=== PATIENT | female | born 1985 | race Caucasian/White ===

== ENCOUNTER → 2017-04-22 | Outpatient (CLI) | payer OTHER ==
[~2017-04-22] MED LIST: METFORMIN PO; PREN1TAB60 PO
== END ==
LOC: STAR 09:17
PROVIDERS: ATTEND Obstetrics & Gynecology
DX: Z02.9 Encounter for administrative examinations, unspecified (principal)

== ENCOUNTER 2017-04-27 08:27 | Observation (INO) | payer OTHER ==
[~2017-04-27] VITALS: Ht 165.1 cm; Wt 97.4 kg
[2017-04-27 09:05] VITALS: BP 119/73
[2017-04-27] MEDS ORDERED: BUPIVACAINE/PF 0.25% ONE (09:25)
[2017-04-27] MEDS ORDERED: EPINEPHRINE 1 MG/ML, 1ML ONE (09:25)
[2017-04-27] MEDS ORDERED: INTERCEED 3 X 4 INCH DRESSING ONE (09:25)
[2017-04-27 10:05] LABS: HCG UR SG 1.018 (1.003-1.030)
[2017-04-27] MEDS ORDERED: FENTANYL PF 100 MCG/2ML ONE ×2 (10:11→11:15)
[2017-04-27] MEDS ORDERED: MIDAZOLAM 1 MG/ML, 2ML ONE (10:11)
[2017-04-27] MEDS ORDERED: KETAMINE 10 MG/ML, 20ML ONE (10:14)
[2017-04-27] MEDS ORDERED: CEFAZOLIN 1,000 MG ONE (10:17)
[2017-04-27] MEDS ORDERED: GLYCOPYRROLATE 0.2MG/1ML, 5ML ONE (10:17)
[2017-04-27] MEDS ORDERED: KETOROLAC 30 MG/1 ML ONE (10:17)
[2017-04-27] MEDS ORDERED: NEOSTIGMINE 1 MG/ML, 10ML ONE (10:17)
[2017-04-27] MEDS ORDERED: DEXAMETHASONE 4 MG/ML, 1ML ONE (10:17)
[2017-04-27] MEDS ORDERED: ONDANSETRON 2MG/ML, 2ML ONE (10:17)
[2017-04-27] MEDS ORDERED: LIDOCAINE 2% 100MG/5ML SYRINGE ONE (10:17)
[2017-04-27] MEDS ORDERED: PROPOFOL 10 MG/ML, 20ML ONE (10:17)
[2017-04-27] MEDS ORDERED: ACETAMINOPHEN 325 MG TABLET PO PRN (11:00)
[2017-04-27] MEDS ORDERED: FENTANYL PF 100 MCG/2ML IV PRN (11:00)
[2017-04-27] MEDS ORDERED: PROMETHAZINE 25 MG/ML, 1ML IV PRN (11:00)
[2017-04-27] MEDS ORDERED: MEPERIDINE/PF 25MG/0.5ML IVPush PRN (11:00)
[2017-04-27] MEDS ORDERED: HYDROmorphone 1 MG/ML, 1ML IV PRN (11:00)
[2017-04-27] MEDS ORDERED: OXYcodone 5 MG/5 ML ORAL.SOL UDC PO PRN (11:00)
[2017-04-27] MEDS ORDERED: OXYcodone 5 MG/5 ML ORAL.SOL UDC ONE (12:03)
[2017-04-27 12:35] VITALS: BP 103/70
[2017-04-27] MEDS ORDERED: morphine SULFATE 10 MG/ML, 1ML IV PRN (13:30)
[2017-04-27] MEDS ORDERED: LACTATED RINGERS 500 ML IVBOLUS ONE (13:30)
[2017-04-27] MEDS ORDERED: IBUPROFEN 600 MG TABLET PO PRN (13:30)
[2017-04-27] MEDS ORDERED: OXYcodone/APAP 5/325MG TABLET PO PRN (13:30)
[2017-04-27] MEDS ORDERED: LACTATED RINGERS 1,000 ML IV SCH (13:30)
[2017-04-27] MEDS ORDERED: OXYC-302 PO (13:34)
[2017-04-27] MEDS ORDERED: IBUP-1223 PO (13:36)
[2017-04-27] MEDS ORDERED: ONDANSETRON ODT 4 MG ONE (16:49)
[2017-04-27] MEDS ORDERED: ONDANSETRON 4 MG TABLET PO PRN (17:00)
== END 2017-04-27 18:20 | disposition home or self-care (01) ==
LOC: OR 08:27 → 4NOR 08:44 → OUT 13:24
PROVIDERS: ADMIT Obstetrics & Gynecology; ATTEND Obstetrics & Gynecology
DX: E28.2 Polycystic ovarian syndrome (principal)
CPT/HCPCS: 49320; 58350; 81025; G0378; J0690; J1100; J1885; J2250; J2405; J2704; J2710; J3010; Q0162; J0171; J3490

== ENCOUNTER 2018-08-10 11:58 | Inpatient (IN) | payer OTHER ==
[~2018-08-10] VITALS: Ht 162.6 cm; Wt 85.5 kg
[~2018-08-10 11:58] MED LIST changes: +IBUP-1223 PO; +OXYC-302 PO
[2018-08-10 12:13] VITALS: BP 102/60
[2018-08-10] MEDS ORDERED: LEVO175T5 PO (12:39)
[2018-08-10] MEDS ORDERED: OMEP20TA62 PO (12:39)
[2018-08-10] MEDS ORDERED: OXYTOCIN 30U/ 0.9% NaCL 500ML 500 ML IV ONE (14:14)
[2018-08-10] MEDS ORDERED: D5%-LACTATED RINGERS 1,000 ML IV SCH (14:14)
[2018-08-10] MEDS ORDERED: TERBUTALINE 1 MG/ML, 1ML IVPush PRN (14:30)
[2018-08-10] MEDS ORDERED: CALCIUM CARBONATE 500 MG TAB.CHEW PO PRN (14:30)
[2018-08-10] MEDS ORDERED: FENTANYL PF 100 MCG/2ML IV PRN (14:30)
[2018-08-10 14:35] LABS: BASOPHILS # (AUTO) 0.06 x10^3/uL (0-0.1); BASOPHILS % (AUTO) 1 % (0-1); EOSINOPHILS # (AUTO) 0.32 x10^3/uL (0-0.4); EOSINOPHILS % (AUTO) 3 % (1-7); LYMPHOCYTES # (AUTO) 2.98 x10^3/uL (1-3.4); LYMPHOCYTES % (AUTO) 28 % (22-44); MD NO; MEAN CORPUSCULAR HEMOGLOBIN 29.4 pg (27.0-34.8); MEAN CORPUSCULAR HGB CONC 32.7 g/dL (32.4-35.8); MEAN CORPUSCULAR VOLUME 89.9 fL (80-100); MEAN PLATELET VOLUME 8.5 fL (7.4-10.4); MONOCYTES # (AUTO) 0.34 x10^3/uL (0.2-0.8); MONOCYTES % (AUTO) 3 % (2-9); NEUTROPHILS # (AUTO) 6.93 x10^3/uL (1.8-6.8); NEUTROPHILS % (AUTO) 65 % (42-75); PLATELET COUNT 270 x10^3/uL (130-400); RED BLOOD COUNT 4.41 x10^6/uL (3.82-5.3); RED CELL DISTRIBUTION WIDTH 13.6 % (9.6-15.2)
[2018-08-10] MEDS: LACTATED RINGERS 1,000 ML IV SCH (14:51)
[2018-08-10] MEDS ORDERED: NEWBORN KIT ONE (14:55)
[2018-08-10] MEDS ORDERED: OXYTOCIN 30U/ 0.9% NaCL 500ML 500 ML ONE (18:34)
[2018-08-10] MEDS ORDERED: OXYTOCIN 30U/ 0.9% NaCL 500ML 500 ML IV PRN (18:41)
[2018-08-10 19:41] VITALS: BP 116/61
[2018-08-10] MEDS ORDERED: FENTANYL/BUPIV./NS/PF 250 ML EPIDCONT SCH (20:01)
[2018-08-10] MEDS ORDERED: FENTANYL PF 500 MCG, BUPIVACAINE/PF 0.5%, 30ML 62.5 ML in SODIUM CHLORIDE 0.9% 177.5 ML EPIDCONT SCH (20:18)
[2018-08-11] MEDS ORDERED: LIDOCAINE 1%, 20ML ONE (00:32)
[2018-08-11] MEDS ORDERED: MISOPROSTOL 200 MCG TABLET ONE (00:33)
[2018-08-11] MEDS ORDERED: FENTANYL PF 100 MCG/2ML ONE ×2 (00:37→03:21)
[2018-08-11] MEDS: FENTANYL PF 100 MCG/2ML IVPush PRN ×2 (00:44→03:24)
[2018-08-11] MEDS ORDERED: ONDANSETRON 2MG/ML, 2ML ONE ×2 (03:12→19:01)
[2018-08-11] MEDS: ONDANSETRON 2MG/ML, 2ML IVPush PRN ×2 (03:15→19:06)
[2018-08-11] MEDS ORDERED: LACTATED RINGERS 1,000 ML IV SCH (04:37)
[2018-08-11] MEDS ORDERED: FENTANYL/BUPIV./NS/PF 250 ML EPIDCONT SCH (04:37)
[2018-08-11] MEDS ORDERED: BUPIVACAINE 0.25% ONE (04:39)
[2018-08-11] MEDS ORDERED: NALOXONE 0.4 MG/ML, 1ML IVPush PRN (05:00)
[2018-08-11] MEDS ORDERED: LACTATED RINGERS 1,000 ML IVBOLUS PRN (05:00)
[2018-08-11] MEDS: EPHEDRINE 50 MG/ML, 1ML IVPush PRN ×2 (05:25→06:54)
[2018-08-11] MEDS: LACTATED RINGERS 1,000 ML IV SCH (05:39)
[2018-08-11] MEDS ORDERED: CEFAZOLIN PMX 1GM/50ML 0 ML ONE (14:34)
[2018-08-11] MEDS: CEFAZOLIN PMX 1GM/50ML 50 ML IV SCH ×2 (14:40→20:31)
[2018-08-11] MEDS ORDERED: OXYTOCIN 30U/ 0.9% NaCL 500ML 500 ML ONE (18:59)
[2018-08-11 19:26] VITALS: BP 95/52
[2018-08-11] MEDS ORDERED: METOCLOPRAMIDE 5 MG/ML, 2ML ONE (19:37)
[2018-08-11] MEDS ORDERED: SODIUM CITRATE/CITRIC ACID 15 ML UDC ONE (19:37)
[2018-08-11] MEDS ORDERED: CEFAZOLIN PMX 1GM/50ML 50 ML ONE (20:28)
[2018-08-12] MEDS ORDERED: METOCLOPRAMIDE 5 MG/ML, 2ML ONE (05:10)
[2018-08-12] MEDS ORDERED: FENTANYL PF 100 MCG/2ML ONE (06:04)
[2018-08-12] MEDS ORDERED: METOCLOPRAMIDE 5 MG/ML, 2ML IVPush PRN (06:30)
[2018-08-12] MEDS ORDERED: SODIUM CITRATE/CITRIC ACID 15 ML UDC PO PRN (06:30)
[2018-08-12] MEDS ORDERED: CEFAZOLIN 1,000 MG ONE (06:54)
[2018-08-12] MEDS ORDERED: EPHEDRINE 50 MG/ML, 1ML ONE (06:54)
[2018-08-12] MEDS ORDERED: WATER-INJECTION,STERILE 10 ML IV ONE (06:54)
[2018-08-12] MEDS ORDERED: ONDANSETRON 2MG/ML, 2ML ONE (06:54)
[2018-08-12] MEDS ORDERED: PHENYLEPHRINE 10 MG/ML ONE (06:54)
[2018-08-12] MEDS ORDERED: PROPOFOL 10 MG/ML, 20ML ONE ×2 (06:54)
[2018-08-12] MEDS ORDERED: OXYTOCIN 10 UNITS/ML, 1ML ONE ×2 (06:54→07:09)
[2018-08-12] MEDS ORDERED: morphine SULFATE/PF 0.5 MG/ML, 10ML ONE (06:57)
[2018-08-12] MEDS ORDERED: MIDAZOLAM 1 MG/ML, 2ML ONE ×2 (07:07→07:12)
[2018-08-12] MEDS ORDERED: BUPIVACAINE 0.25% ONE (07:10)
[2018-08-12] MEDS ORDERED: KETOROLAC 30 MG/1 ML ONE (07:18)
[2018-08-12] MEDS ORDERED: HYDROmorphone 2 MG/ML, 1ML ONE (07:18)
[2018-08-12] MEDS ORDERED: LIDOCAINE 1%, 20ML ONE (07:40)
[2018-08-12] MEDS ORDERED: LACTATED RINGERS 1,000 ML IV SCH (07:43)
[2018-08-12] MEDS ORDERED: OXYcodone 5 MG/5 ML ORAL.SOL UDC ONE (07:58)
[2018-08-12] MEDS ORDERED: OXYTOCIN 30U/ 0.9% NaCL 500ML 500 ML ONE (07:59)
[2018-08-12] MEDS ORDERED: METHYLERGONOVINE 0.2 MG/ML IM PRN (08:00)
[2018-08-12] MEDS ORDERED: ONDANSETRON 2MG/ML, 2ML IV PRN ×2 (08:00→09:00)
[2018-08-12] MEDS ORDERED: MISOPROSTOL 200 MCG TABLET PR PRN (08:00)
[2018-08-12] MEDS ORDERED: ACETAMINOPHEN 325 MG TABLET PO PRN ×2 (08:00→09:00)
[2018-08-12] MEDS ORDERED: OXYcodone/APAP 5/325MG TABLET PO PRN (08:00)
[2018-08-12] MEDS ORDERED: CALCIUM CARBONATE 500 MG TAB.CHEW PO PRN (08:00)
[2018-08-12] MEDS ORDERED: OXYcodone IR 5MG TABLET PO PRN (08:30)
[2018-08-12] MEDS: OXYTOCIN 30U/ 0.9% NaCL 500ML 500 ML IV SCH ×2 (08:49→17:43)
[2018-08-12] MEDS: PRENATAL VIT/IRON/FA 1 EACH TABLET PO SCH (09:00)
[2018-08-12] MEDS ORDERED: OXYcodone 5 MG/5 ML ORAL.SOL UDC PO PRN (09:00)
[2018-08-12] MEDS ORDERED: HYDROmorphone 2 MG/ML, 1ML IV PRN (09:00)
[2018-08-12] MEDS ORDERED: FENTANYL PF 100 MCG/2ML IVPush PRN (09:00)
[2018-08-12 09:50] VITALS: BP 91/51
[2018-08-12] MEDS: KETOROLAC 30 MG/1 ML IVPush SCH ×2 (12:58→19:30)
[2018-08-12] MEDS: OXYcodone IR 5MG TABLET PO PRN ×3 (13:05→22:29)
[2018-08-12 13:08] VITALS: BP 94/55
[2018-08-12] MEDS: LACTATED RINGERS 1,000 ML IV SCH ×2 (13:35→17:43)
[2018-08-12 15:33] LABS: BASOPHILS # (AUTO) 0.03 x10^3/uL (0-0.1); BASOPHILS % (AUTO) 0 % (0-1); EOSINOPHILS # (AUTO) 0.18 x10^3/uL (0-0.4); EOSINOPHILS % (AUTO) 2 % (1-7); LYMPHOCYTES # (AUTO) 1.93 x10^3/uL (1-3.4); LYMPHOCYTES % (AUTO) 18 % (22-44); MD NO; MEAN CORPUSCULAR HEMOGLOBIN 29.5 pg (27.0-34.8); MEAN CORPUSCULAR HGB CONC 33.1 g/dL (32.4-35.8); MEAN CORPUSCULAR VOLUME 89.1 fL (80-100); MEAN PLATELET VOLUME 8.4 fL (7.4-10.4); MONOCYTES # (AUTO) 0.34 x10^3/uL (0.2-0.8); MONOCYTES % (AUTO) 3 % (2-9); NEUTROPHILS # (AUTO) 8.23 x10^3/uL (1.8-6.8); NEUTROPHILS % (AUTO) 77 % (42-75); PLATELET COUNT 203 x10^3/uL (130-400); RED BLOOD COUNT 3.52 x10^6/uL (3.82-5.3); RED CELL DISTRIBUTION WIDTH 13.3 % (9.6-15.2)
[2018-08-12 17:44] VITALS: BP 92/46
[2018-08-12 19:15] VITALS: BP 81/43
[2018-08-12] MEDS: DOCUSATE 100 MG CAPSULE PO PRN (22:29)
[2018-08-13 00:50] VITALS: BP 88/48
[2018-08-13] MEDS: KETOROLAC 30 MG/1 ML IVPush SCH ×2 (00:55→06:54)
[2018-08-13] MEDS: LACTATED RINGERS 1,000 ML IV SCH ×3 (03:43→23:43)
[2018-08-13] MEDS: OXYTOCIN 30U/ 0.9% NaCL 500ML 500 ML IV SCH ×3 (03:43→23:43)
[2018-08-13 05:15] VITALS: BP 91/56
[2018-08-13 07:00] VITALS: BP 87/50
[2018-08-13] MEDS: PRENATAL VIT/IRON/FA 1 EACH TABLET PO SCH (09:00)
[2018-08-13] MEDS: DOCUSATE 100 MG CAPSULE PO PRN (10:47)
[2018-08-13] MEDS: OXYcodone IR 5MG TABLET PO PRN ×3 (10:47→20:50)
[2018-08-13] MEDS: IBUPROFEN 800 MG TABLET PO PRN ×2 (13:40→22:18)
[2018-08-13 20:30] VITALS: BP 97/63
[2018-08-14 08:00] VITALS: BP 92/60
[2018-08-14] MEDS: IBUPROFEN 800 MG TABLET PO PRN ×2 (08:16→16:36)
[2018-08-14] MEDS: DOCUSATE 100 MG CAPSULE PO PRN ×2 (08:16→21:23)
[2018-08-14] MEDS: OXYcodone IR 5MG TABLET PO PRN ×4 (08:16→21:23)
[2018-08-14] MEDS: PRENATAL VIT/IRON/FA 1 EACH TABLET PO SCH (09:00)
[2018-08-14] MEDS: OXYTOCIN 30U/ 0.9% NaCL 500ML 500 ML IV SCH ×2 (09:43→19:43)
[2018-08-14] MEDS: LACTATED RINGERS 1,000 ML IV SCH ×2 (09:43→19:43)
[2018-08-14] MEDS ORDERED: FUROSEMIDE 20 MG TABLET PO ONE (15:00)
[2018-08-14 21:30] VITALS: BP 89/53
[2018-08-15] MEDS: IBUPROFEN 800 MG TABLET PO PRN ×2 (00:06→08:05)
[2018-08-15] MEDS: OXYcodone IR 5MG TABLET PO PRN ×2 (02:38→09:10)
[2018-08-15] MEDS: LACTATED RINGERS 1,000 ML IV SCH (05:43)
[2018-08-15] MEDS: OXYTOCIN 30U/ 0.9% NaCL 500ML 500 ML IV SCH (05:43)
[2018-08-15] MEDS: DOCUSATE 100 MG CAPSULE PO PRN (08:05)
[2018-08-15] MEDS: PRENATAL VIT/IRON/FA 1 EACH TABLET PO SCH (08:05)
[2018-08-15 08:29] VITALS: BP 93/55
[2018-08-15] MEDS ORDERED: ONDANSETRON 4 MG TABLET PO PRN (08:30)
[2018-08-15] MEDS ORDERED: ONDA4TAB7 PO (12:21)
[2018-08-15] MEDS ORDERED: OXYC-302 PO (12:21)
[2018-08-15] MEDS ORDERED: IBUP-1223 PO (12:21)
== END 2018-08-15 14:15 | disposition home or self-care (01) | DRG 788 ==
LOC: LDOP 11:58 → LDIP 13:59 → 2NW 08-12 09:41
PROVIDERS: ADMIT Obstetrics & Gynecology; ATTEND Obstetrics & Gynecology
PROC: 10D00Z1 Extraction of Products of Conception, Low, Open Approach (ICD-10-PCS; principal; 2018-08-12)
DX: O62.0 Primary inadequate contractions (principal); E03.9 Hypothyroidism, unspecified; O99.284 Endocrine, nutritional and metabolic diseases complicating childbirth; O36.8130 Decreased fetal movements, third trimester, not applicable or unspecified; O42.12 Full-term premature rupture of membranes, onset of labor more than 24 hours following rupture; O33.9 Maternal care for disproportion, unspecified; Z37.0 Single live birth; Z3A.39 39 weeks gestation of pregnancy
CPT/HCPCS: 36415; J7121; S0020; 76815; 85025; 86850; 86900; 89060; 93970; G0378; J0690; J1170; J1885; J2250; J2274; J2405; J2704; J3010; J3490; Q0162; J2370; J2590; J2765; J7050; J7120; Q0114

== ENCOUNTER 2018-08-23 01:39 | Emergency (ER) | payer OTHER ==
[~2018-08-23] VITALS: Ht 165.1 cm; Wt 78.5 kg
[~2018-08-23 01:39] MED LIST changes: +LEVO175T5 PO; +OMEP20TA62 PO; +ONDA4TAB7 PO
--- NOTE | 2018-08-23 01:57 | NUR ---
PT STATED "I'M WEAK AND HAVE BEEN HAVING N/V FOR TWO AND A HALF DAYS." PT RECENTLY HERE FOR C SECTION ON 08/12. MONITORS APPLIED, SIDERAILS UP X2, CALL LIGHT WITHIN REACH
[2018-08-23] MEDS ORDERED: PROMETHAZINE 25 MG/ML, 1ML IM ONE (02:00)
[2018-08-23] MEDS ORDERED: METOCLOPRAMIDE 5 MG/ML, 2ML IVPush ONE (02:00)
[2018-08-23] MEDS ORDERED: SODIUM CHLORIDE 0.9% 1,000ML IVBOLUS ONE (02:00)
[2018-08-23] MEDS ORDERED: SODIUM CHLORIDE FLUSH 10ML SYR IVF ONE (02:00)
[2018-08-23] MEDS ORDERED: PROMETHAZINE 25 MG/ML, 1ML ONE (02:07)
[2018-08-23] MEDS ORDERED: METOCLOPRAMIDE 5 MG/ML, 2ML ONE (02:07)
--- NOTE | 2018-08-23 02:22 | NUR ---
IV SITE STARTED, IV FLUIDS INFUSING, PT MEDICATED PER MAR
[2018-08-23 02:29] LABS: BASOPHILS # (AUTO) 0.03 x10^3/uL (0-0.1); BASOPHILS % (AUTO) 0 % (0-1); EOSINOPHILS # (AUTO) 0.32 x10^3/uL (0-0.4); EOSINOPHILS % (AUTO) 4 % (1-7); LYMPHOCYTES # (AUTO) 2.71 x10^3/uL (1-3.4); LYMPHOCYTES % (AUTO) 31 % (22-44); MD NO; MEAN CORPUSCULAR HEMOGLOBIN 28.9 pg (27.0-34.8); MEAN CORPUSCULAR HGB CONC 32.6 g/dL (32.4-35.8); MEAN CORPUSCULAR VOLUME 88.7 fL (80-100); MEAN PLATELET VOLUME 7.5 fL (7.4-10.4); MONOCYTES # (AUTO) 0.19 x10^3/uL (0.2-0.8); MONOCYTES % (AUTO) 2 % (2-9); NEUTROPHILS # (AUTO) 5.45 x10^3/uL (1.8-6.8); NEUTROPHILS % (AUTO) 63 % (42-75); PLATELET COUNT 522 x10^3/uL (130-400); RED BLOOD COUNT 4.98 x10^6/uL (3.82-5.3); RED CELL DISTRIBUTION WIDTH 13.2 % (9.6-15.2)
[2018-08-23] MEDS ORDERED: FAMOTIDINE 20 MG/2 ML ONE (02:29)
[2018-08-23] MEDS ORDERED: FAMOTIDINE 20 MG/2 ML IVP ONE (02:30)
[2018-08-23] MEDS ORDERED: MAALOX/HYOSCYAMINE/LIDOCAINE 45 ML BTL PO ONE (02:30)
[2018-08-23 02:33] LABS: CULTURE INDICATED? NO; MICROSCOPIC AUTO
[2018-08-23 02:39] LABS: ALANINE AMINOTRANSFERASE 16 U/L (12-78); ALBUMIN 2.8 g/dL (3.4-5.0); ANION GAP 11 mmol/L (5-15); CHLORIDE 101 mmol/L (98-107); CREATININE 0.87 mg/dL (0.55-1.02)
[2018-08-23 02:40] LABS: ALKALINE PHOSPHATASE 166 U/L (45-117); BILIRUBIN,TOTAL 0.7 mg/dL (0.2-1.0); TOTAL PROTEIN 7.6 g/dL (6.4-8.2)
[2018-08-23] MEDS ORDERED: POTASSIUM CHLORIDE 40 MEQ in D5%-0.9% NACL 1,000 ML IV ONE (02:43)
--- NOTE | 2018-08-23 02:44 | NUR ---
MEDS ORDERED FROM THE PHARMACY
[2018-08-23] MEDS ORDERED: DEXTROSE 50%, 50ML SYRINGE IVPush ONE (03:00)
--- NOTE | 2018-08-23 03:59 | NUR ---
PT RESTING CALMLY, PROVIDED PT WITH SNACK. MONITORS IN PLACE, DENIES NEEDS, CALL LIGHT WITHIN REACH.
[2018-08-23] MEDS ORDERED: ONDANSETRON 2MG/ML, 2ML ONE (04:21)
--- NOTE | 2018-08-23 04:24 | NUR ---
PT C/O NAUSEA, ERP UPDATED, ORDER RECEIVED FOR ZOFRAN, PT MEDICATED PER MAR
[2018-08-23] MEDS ORDERED: ONDANSETRON 2MG/ML, 2ML IVPush ONE (04:30)
[2018-08-23 05:57] VITALS: BP 96/53
--- NOTE | 2018-08-23 05:58 | NUR ---
PT RESTING CALMLY, IV FLUIDS INFUSING, DENIES NEEDS, DENIES NAUSEA, MONITORS IN PLACE, CALL LIGHT WITHIN REACH
--- NOTE | 2018-08-23 06:50 | NUR ---
REPORT GIVEN TO RUBIN KRISHNAMURTHY
== END 2018-08-23 07:06 | disposition home or self-care (01) ==
LOC: ED 03:49
DX: R11.2 Nausea with vomiting, unspecified (principal); E86.0 Dehydration; E86.9 Volume depletion, unspecified; E16.2 Hypoglycemia, unspecified; E03.9 Hypothyroidism, unspecified
CPT/HCPCS: 36415; 80053; 81001; 82962; 83690; 85025; 96361; 96365; 96366; 96372; 96375; 99291; J2405; J2550; J2765; J3480; J3490; J7030; J7042